=== PATIENT | male | born 1985 | race African-American/Black ===

== ENCOUNTER 2016-08-16 13:39 | Emergency (ER) | payer SELFPAY ==
[~2016-08-16] VITALS: Ht 195.6 cm; Wt 83.9 kg
[~2016-08-16 13:39] MED LIST: ALBUTEROL SULF8.5 GM INH; AZITHROMYCIN250 MG ORAL; TAMIFLU75 MG ORAL
[2016-08-16] MEDS ORDERED: Albuterol ud Inhalation ONE (14:16)
[2016-08-16] MEDS ORDERED: Ipratropium 0.02% Inh Soln 2.5ml UD ONE (14:16)
[2016-08-16] MEDS ORDERED: Albuterol ud Inhalation HHN ONE (14:30)
[2016-08-16] MEDS ORDERED: Ipratropium 0.02% Inh Soln 2.5ml UD HHN ONE (14:30)
[2016-08-16] MEDS ORDERED: PROAIR HFA8.5 GM INH (14:49)
[2016-08-16 15:11] VITALS: BP 138/72
[2016-08-16 15:18] VITALS: BP 138/72
--- NOTE | 2016-08-16 17:37 | Emergency Room Report ---
History of Present Illness General Chief Complaint: General Complaint Source: Patient Present Illness HPI The patient is a 31-year-old male with a history of asthma presenting with possible asthma exacerbation. The patient states that sudden change of weather has caused him to have shortness of breath and coughing. He has run out of his albuterol at home and is asking for a breathing treatment. The patient describes a dry cough with 5/10 pain to the mid back with coughing only. Pain does not radiate. He denies other symptoms such as N, V, F, chills, CP, dizziness Allergies: Coded Allergies: No Known Allergies (Unverified , 05/28/14) Patient History Past Medical History: see triage record Pertinent Family History: none Reviewed Nursing Documentation: PMH: Agreed, PSxH: Agreed Nursing Documentation-PMH Past Medical History: No History, Except For Hx Asthma: Yes Review of Systems All Other Systems: negative except mentioned in HPI Physical Exam Vital Signs Date Time Temp Pulse Resp B/P Pulse Ox O2 Delivery O2 Flow Rate FiO2 08/16/16 14:05 98.2 83 18 146/70 98 Room Air 08/16/16 14:20 21 Sp02 EP Interpretation: reviewed, normal General Appearance: no apparent distress, alert, GCS 15, non-toxic Head: normocephalic, atraumatic Eyes: bilateral eye PERRL, bilateral eye normal inspection ENT: hearing grossly normal, normal pharynx, no angioedema, normal voice Neck: full range of motion, supple/symm/no masses Respiratory: normal inspection, no accessory muscle use, decreased breath sounds, wheezing - bilat, minimal Cardiovascular #1: regular rate, rhythm, no edema Musculoskeletal: back normal, gait/station normal, normal range of motion, non- tender Neurologic: alert, oriented x3, responsive, motor strength/tone normal, sensory intact, normal gait, speech normal Psychiatric: judgement/insight normal, memory normal, mood/affect normal, no suicidal/homicidal ideation Skin: normal color, no rash, warm/dry, well hydrated Lymphatic: no adenopathy Medical Decision Making PA Attestation Dr. Barfield is my supervising physician. Patient management was discussed with my supervising physician Diagnostic Impression: Primary Impression: Asthma Qualified Codes: J45.21 - Mild intermittent asthma with (acute) exacerbation ER Course The patient is a 31-year-old male with a history of asthma presenting with possible asthma exacerbation Differential diagnoses considered but not limited to: Asthma exacerbation, bronchitis, pneumonia, anxiety PE: No apparent distress. vitals WNL No TTP over maxillary or frontal sinuses. Lungs : Bilat minimal wheezing.. No accessory muscle use. Heart: RRR, no abnormal heart sounds Ears: external auditory canal clear. Non erythematous. Bilat TM intact. Cone of light present bilat. No bulging of TM. No serous fluid seen. No nasal D/C No cervical lymphad No tonsillar exudate. Uvula midline.Oropharynx non erythematous Pt given breathing Tx and is feeling better. Lung sounds have improved. He will be DC'ed home with prescription for albuterol and will FU with PMD Last Vital Signs Date Time Temp Pulse Resp B/P Pulse Ox O2 Delivery O2 Flow Rate FiO2 08/16/16 15:18 98.2 16 138/72 99 Room Air 21 08/16/16 15:11 89 Status: improved Disposition: HOME, SELF-CARE Condition: Improved Scripts Albuterol Sulfate* (PROAIR HFA*) 8.5 Gm Hfa.aer.ad 2 PUFFS INH Q6H, #8.5 GM 0 Refills Prov: RUY MCCARTNEY 08/16/16 Patient Instructions: Asthma, Adult, Asthma Attack Prevention Additional Instructions: I discussed my findings with the patient. All questions and concerns have been answered. Treatment and medication compliance have been addressed. I advised the patient that they need to follow up with PMD in 3-5 days. Return to ED if symptoms worsen, new symptoms arise, or if needed for any reason. Patient verbalized understanding of discharge instructions. RUY MCCARTNEY Aug 16, 2016 17:37
== END 2016-08-16 15:20 | disposition home or self-care (01) ==
LOC: EMR 14:25
DX: J45.21 Mild intermittent asthma with (acute) exacerbation (principal)
CPT/HCPCS: 94640; 94664; 99283

== ENCOUNTER 2020-03-26 10:24 | Emergency (ER) | payer BC ==
[~2020-03-26] VITALS: Ht 195.6 cm; Wt 88.5 kg
[~2020-03-26 10:24] MED LIST changes: +PROAIR HFA8.5 GM INH
--- NOTE | 2020-03-26 10:42 | NUR ---
ED Nurse Note: Walked in from home. He is AxOx4. He states that he has chronic athsma and needs a refill of both his MDI and nebulizer treament. He said that he has been without his medication since Tuesday and that he feels mildly short of breath at this time. His vitals are stable on RA as documented. No complaints of pain.
[2020-03-26 10:51] VITALS: BP 111/73
--- NOTE | 2020-03-26 11:01 | NUR ---
ED Nurse Note: covid swab collected and sent to lab
[2020-03-26] MEDS ORDERED: Albuterol/Ipratropium 3ml neb HHN ONE (11:45)
[2020-03-26] MEDS ORDERED: ALBUTEROL2.5 MG/3 M INH (12:17)
[2020-03-26] MEDS ORDERED: PREDNISONE20 MG ORAL (12:17)
[2020-03-26] MEDS ORDERED: PROAIR HFA8.5 GM INH (12:17)
[2020-03-26 12:28] VITALS: BP 136/80
--- NOTE | 2020-03-26 12:28 | NUR ---
ER DISCHARGE NOTE: Pt state he feels better after his nebulizer treatment. Patient is cleared to be discharged per ER MD, pt is aox4, on room air, with stable vital signs. pt was given dc and prescription instructions, pt was able to verbalize understanding, pt id band removed without complications. pt is able to ambulate with steady gait. pt took all belongings.
--- NOTE | 2020-03-27 07:15 | Emergency Room Report ---
History of Present Illness General Chief Complaint: Asthma Source: Patient Present Illness HPI 34-year-old male presents for asthma. States he is run out of his inhaler for 2 weeks. States he has been wheezing for 1 week now. Denies cough. Denies chest pain or shortness of breath. Denies smoking. Denies sick contacts or recent travel. No other aggravating relieving factors. 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 COVID-19 Screening: Negative COVID-19 COVID-19 Testing Source: throat /DRYERMAN/WOMAN Patient History Past Medical History: asthma Past Surgical History: none Pertinent Family History: none Social History: Denies: smoking, alcohol use, drug use Immunizations: UTD Reviewed Nursing Documentation: PMH: Agreed; PSxH: Agreed Nursing Documentation-PMH Past Medical History: No History, Except For Hx Asthma: Yes Review of Systems All Other Systems: negative except mentioned in HPI Physical Exam Vital Signs Date Time Temp Pulse Resp B/P (MAP) Pulse Ox O2 Delivery O2 Flow Rate FiO2 03/26/20 10:41 98.8 87 16 111/73 (86) 96 Room Air 03/26/20 12:04 21 Sp02 EP Interpretation: reviewed, normal General Appearance: no apparent distress, alert, GCS 15, non-toxic Head: normocephalic, atraumatic Eyes: bilateral eye normal inspection, bilateral eye PERRL ENT: hearing grossly normal, normal pharynx, no angioedema, normal voice Neck: full range of motion, supple/symm/no masses Respiratory: chest non-tender, normal breath sounds, speaking full sentences, wheezing Cardiovascular #1: regular rate, rhythm, no edema Cardiovascular #2: 2+ carotid (R), 2+ carotid (L), 2+ radial (R), 2+ radial (L), 2+ dorsalis pedis (R), 2+ dorsalis pedis (L) Gastrointestinal: normal bowel sounds, non tender, soft, non-distended, no guarding, no rebound Rectal: deferred Genitourinary: normal inspection, no CVA tenderness Musculoskeletal: back normal, normal range of motion, gait/station normal, non- tender Neurologic: alert, motor strength/tone normal, oriented x3, sensory intact, responsive, speech normal Psychiatric: judgement/insight normal, memory normal, mood/affect normal, no suicidal/homicidal ideation Reflexes: 3+ bicep (R), 3+ bicep (L), 3+ tricep (R), 3+ tricep (L), 3+ knee (R), 3+ knee (L) Skin: no rash Lymphatic: no adenopathy Procedures Critical Care Time Critical Care Time i. I feel this is a highly complex case requiring extensive working including EKG/Rhythm strip, Xray/CT/US, Blood/urine lab work, repeat exams while in ED, and administration of strong opiates/narcotics for pain control, admission to hospital or close patient follow up. Total time: 30 min bedside evaluation and treatment excludes procedures (EKG). Reason for critical care: Respiratory distress Possible complications: hypotension, hypertension, ND, shock, arrhythmias, metabolic acidosis, end organ damage, respiratory failure. Interventions: Covid swab, nebulizer treatment reassessment Course: Patient presenting with shortness of breath. Wheezing. History of asthma. Rapid Covid sent and negative. Albuterol/Atrovent treatment ordered. On reassessment breathing improved. Wheezing resolved. Consultations: nursing staff, EMS, family Performed by: Dr Barfield Tolerated well condition = improved j. because of unstable vital signs this patient had a condition that could potentially threaten life or limb. I feel this is a critical patient who required my full attention while patient was considered critical. Total Critical Care Time excluding procedures was greater than 35 minutes Medical Decision Making Diagnostic Impression: Primary Impression: Asthma attack Qualified Codes: J45.901 - Unspecified asthma with (acute) exacerbation ER Course Hospital Course 34-year-old male presents with wheezing. History of asthma Differential diagnoses include: URI, bronchitis, asthma/COPD, pneumonia Clinical course Patient placed on stretcher. After initial history, physical exam reveals a male in no acute distress. Bilateral TM unremarkable. No pharyngeal erythema. diffuse wheezing noted. Covid swab ordered and negative. Albuterol/Atrovent treatment given. On reassessment patient states he feels better. Breathing improved. Wheezing resolved. Safe for discharge with close outpatient follow-up. I will provide prescriptions for inhaler, solution, prednisone Diagnosis - asthma attack Stable and discharged home with prescriptions for albuterol, prednisone. Instructed to followup with PMD. Return to ED if symptoms recur or worsen Last Vital Signs Date Time Temp Pulse Resp B/P (MAP) Pulse Ox O2 Delivery O2 Flow Rate FiO2 03/26/20 12:28 98.6 90 22 136/80 99 Room Air 03/26/20 12:04 21 Status: improved Disposition: HOME, SELF-CARE Condition: Stable Scripts Prednisone* (PREDNISONE*) 20 Mg Tablet 40 MG ORAL DAILY, #10 TAB Prov: Willie Barfield MD 03/26/20 Albuterol Sulfate* (ALBUTEROL SULFATE HHN*) 2.5 Mg/3 Ml Vial.neb 3 ML INH Q6H PRN for Shortness of Breath, #30 EA 0 Refills Prov: Willie Barfield MD 03/26/20 Albuterol Sulfate* (PROAIR HFA*) 8.5 Gm Hfa.aer.ad 2 PUFFS INH Q6H, #8.5 GM 0 Refills Prov: Willie Barfield MD 03/26/20 Referrals: NON PHYSICIAN (PCP) Roberto Sweeney [facility]. [facility] Patient Instructions: Asthma, Adult Willie Barfield MD Mar 27, 2020 07:15
== END 2020-03-26 12:28 | disposition home or self-care (01) ==
LOC: EMR 12:25
DX: J45.901 Unspecified asthma with (acute) exacerbation (principal)
CPT/HCPCS: 94640; 99291; U0002; J7620